=== PATIENT | male | born 1980 | race Caucasian/White ===

== ENCOUNTER 2020-05-26 19:57 | Emergency (ER) | payer SELFPAY ==
[~2020-05-26] VITALS: Ht 162.6 cm; Wt 65.0 kg
[2020-05-26] MEDS ORDERED: ONDANSETRON HCL 4MG/2ML INJ IV STA (20:22)
[2020-05-26] MEDS ORDERED: SODIUM CHLORIDE 0.9% 1,000 ML IV ONE (20:22)
[2020-05-26] MEDS ORDERED: CHLORDIAZEPOXIDE 25MG CAPSULE PO ONE (20:30)
[2020-05-26 21:03] LABS: BASOPHILS % 0.5 % (0.0-2.0); EOSINOPHILS % 1.2 % (0.0-5.0); HEMATOCRIT. 47.3 % (42.0-52.0); HEMOGLOBIN. 15.8 g/dL (14.0-18.0); LYMPHOCYTES % 22.4 % (20.0-50.0); MEAN CORPUSCULAR HEMOGLOBIN 31.7 pg (28.0-32.0); MEAN CORPUSCULAR VOLUME 94.7 fL (80.0-94.0); MEAN PLATELET VOLUME 7.3 fl (7.4-10.4); NEUTROPHILS % 63.9 % (40.0-76.0); PLATELET 210 x1000/uL (130-400); RED BLOOD CELL COUNT 4.99 mill/uL (4.7-6.1); RED CELL DISTRIBUTION WIDTH 14.2 % (11.6-14.6)
[2020-05-26 21:05] LABS: CHLORIDE 108 mEq/L (98-107)
[2020-05-26 21:27] LABS: ETHANOL BLOOD 458 mg/dL
[2020-05-27] MEDS ORDERED: SODIUM CHLORIDE 0.9% 1,000 ML IV ONE (01:00)
[2020-05-27 04:05] VITALS: BP 105/62
== END 2020-05-27 04:05 | disposition home or self-care (01) ==
LOC: ER 19:57
DX: T51.0X1A Toxic effect of ethanol, accidental (unintentional), initial encounter (principal); R10.9 Unspecified abdominal pain; Y92.89 Other specified places as the place of occurrence of the external cause
CPT/HCPCS: 36415; 80053; 80320; 83690; 85025; 96361; 96374; 99285; J2405; J7030; G0480